=== PATIENT | female | born 1990 | race Caucasian/White ===

== ENCOUNTER 2020-11-29 02:48 | Emergency (ER) | payer SELFPAY ==
[~2020-11-29] VITALS: Ht 165.1 cm; Wt 81.6 kg
--- NOTE | 2020-11-29 03:35 | NUR ---
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 PT ALERT AND ORIENTED X3. AMBULATORY WITH NON LABORED BRAETHING.
[2020-11-29 04:15] VITALS: BP 130/77
--- NOTE | 2020-11-29 04:15 | NUR ---
Patient discharged to home in stable condition. Written and verbal after care instructions given. Patient verbalizes understanding of instruction.
== END 2020-11-29 04:16 | disposition home or self-care (01) ==
LOC: ER 02:51
DX: F41.9 Anxiety disorder, unspecified (principal)
CPT/HCPCS: 82962-TC